=== PATIENT | female | born 1990 | race Caucasian/White ===

== ENCOUNTER 2017-01-17 16:22 | Emergency (ER) | payer MEDICAID ==
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
== END 2017-01-17 17:15 | disposition home or self-care (01) ==
LOC: ER 16:22
DX: M25.561 Pain in right knee (principal)